=== PATIENT | female | born 1955 | race African-American/Black ===

== ENCOUNTER → 2017-02-05 | Outpatient (CLI) | payer OTHER ==
--- NOTE | ~2017-02-05 | BD1 ---
[facility] A Service of [facility] & [facility] RADIOLOGY TEXT RESULTS PATIENT: DEIRDRE MEDINA LOCATION: [facility] : 53 UNIT #: [id number] AGE: [address]: JOIE CALLES MD SEX: F ORDER DR: [id number] [facility] [address] [place], [place] [address] [id number] O MR#: [id number] Acc #: [id number] NAME: DEIRDRE MEDINA : 1955 SEX: F STUDY DATE/TIME: 02/05/2017 15:37 UNIT: [facility] ROOM: STUDY DESCRIPTION: BD Dexa Bone Dens 1+ Site Attending Physician: Joei Calles M.D. Referring Physician: Joie Calles M.D. Ordering Physician: Joie Calles M.D. Primary Care Physician: Joie Calles M.D. MEDICAL IMAGING REPORT This report is preliminary unless electronic signature is present EXAM DXA scan 02/05/2017 HISTORY Status post menopause with no hormone replacement therapy. Osteopenia. Hysterectomy at age 27 with removal of both ovaries. Arthritis. Thyroid medication Levothyroxine use since March 07, 2015. Family history of osteoporosis in mother. Fracture of knee foot and hip in last 10 years. FINDINGS Bone mineral density in the lumbar spine from L1-L4 is 0.738 g/cm2 which is 2.8 standard deviations below the mean when compared to the young adult reference population which is characteristic of osteoporosis. This is 2 standard deviations below the mean when compared to the age-matched population. Bone mineral density in the left femoral neck was 0.479 g/cm2 which is 3.3 standard deviations below the mean when compared to the young adult reference population which is characteristic of osteoporosis. This is 2.2 standard deviations below the mean when compared to the age-matched population. IMPRESSION Bone mineral density in the lumbar spine and left hip characteristic of osteoporosis. Dictated by... Zeeshan Brady M.D. THIS IS AN ELECTRONICALLY VERIFIED REPORT Zeeshan Brady M.D. at 02/06/2017 9:24 AM EUSEBIA/rnr TD: 02/05/2017 20:19 JOB #: [id number] [facility] A Service of [facility] & [facility] RADIOLOGY TEXT RESULTS PATIENT: DEIRDRE MEDINA LOCATION: [facility] : 53 UNIT #: [id number] AGE: [address]: JOIE CALLES MD SEX: F ORDER DR: MEDICAL IMAGING REPORT Page 1 of 1 COPY
== END | disposition home or self-care (01) ==
LOC: CWCC 02-04 11:30
DX: M81.0 Age-related osteoporosis without current pathological fracture (principal)
CPT/HCPCS: 77080